=== PATIENT | female | born 1985 | race Caucasian/White ===

== ENCOUNTER 2016-06-27 16:23 | Emergency (ER) | payer MEDICAID ==
[~2016-06-27] VITALS: Ht 167.6 cm; Wt 132.0 kg
[~2016-06-27 16:23] MED LIST: ALBU0.086 INH; ALBU8I INH; AZAT50 PO; FURO1TAB93 PO; LORTA5 PO; MEST60TA PO; MONT10TA2 PO; POTA10IN2 PO; PROM25SU8 PO
[2016-06-27 16:24] VITALS: BP 179/94; PULSE 74; RESP 20; TEMP 98.7; O2SAT 99
[2016-06-27] MEDS ORDERED: VALA1TAB PO (16:55)
[2016-06-27] MEDS ORDERED: IBUP800T23 PO (16:55)
--- NOTE | 2016-06-27 16:56 | PD ---
HPI Chief Complaint: Skin Problem Time Seen by Provider: 16:52 Travel History International Travel<30 days: No Contact w/Intl Traveler<30days: No Traveled to known affect area: No History of Present Illness HPI 31-year-old female presents to the emergency Department with complaint of a rash to her right mid back 3-4 days. Her mom told her shingles. Denies fever or vomiting. Rash is painful. Has not taken any medications or tried any treatments to alleviate her symptoms. Allergies to Dilaudid. Has no other medical complaints. No other modifying factors or associated signs and symptoms. PFSH Past Medical History Asthma: Yes Blood Disorders: No Heart Rhythm Problems: No Cancer: No Cardiovascular Problems: No High Cholesterol: No Chest Pain: No Congestive Heart Failure: No COPD: No Diabetes: No Diminished Hearing: No Endocrine: No Genitourinary: No Immune Disorder: No Musculoskeletal: No Neurologic: Yes (MYESTHENIA GRAVIS) Psychiatric: No Reproductive: No Respiratory: Yes (ASTHMA) Sleep Apnea: No Thyroid Disease: No ?: Not LMP: 05/29/16 : 1 Para: 1 Miscarriage: 0 : 0 Past Surgical History AICD: No Appendectomy: Yes Pacemaker: No Other Surgery: Yes (APPENDECTOMY) Social History Alcohol Use: No Tobacco Use: No Substance Use: No Allergies-Medications (Allergen,Severity, Reaction): Coded Allergies: Dilaudid (Verified Adverse Reaction, Mild, Itching, 06/27/16) Reported Meds & Prescriptions Reported Meds & Active Scripts Active Ibuprofen 800 Mg Tab 800 Mg PO Q6HR PRN Valacyclovir (Valacyclovir HCl) 1 Gm Tab 1,000 Mg PO TID 7 Days [place] 5-325 mg (Hydrocodone-Acetaminophen 5-325 mg) 5 mg/325 mg Tab 1 Tab PO Q6H PRN Promethazine Hcl (Promethazine HCl) 25 Mg Tab 25 Mg PO Q6H PRN FOR NAUSEA/VOMITING Proventil Ud 0.083% (2.5 Mg/3 Ml) (Albuterol Sulfate) 2.5 Mg/3 Ml Inha 2.5 Mg INH Q6H Ventolin Hfa (Albuterol Sulfate) 8 Gm Aero 2 Puff INH Q4 * SHAKE WELL BEFORE USE * Ventolin Hfa (Albuterol Sulfate) 8 Gm Aero 2 Puff INH Q4 * SHAKE WELL BEFORE USE * Reported Potassium Chloride 10 Meq Cap 1 Cap PO BID Furosemide 40 Mg Tab 40 Mg PO BID Proventil Ud 0.083% (2.5 Mg/3 Ml) (Albuterol Sulfate) 2.5 Mg/3 Ml Inha 2.5 Mg INH Q4 PRN Singulair (Montelukast Sodium) 10 Mg Tab 10 Mg PO HS Azathioprine 50 Mg Tab 50 Mg PO BID 30 Days Mestinon (Pyridostigmine [place]) 60 Mg Tab 180 Mg PO 5 TIMES A DAY Review of Systems Except as stated in HPI: all other systems reviewed are Neg Physical Exam Narrative GENERAL: Well-nourished, well-developed female patient, in no acute distress; afebrile, nontoxic-appearing SKIN: Warm and dry. Right mid back with erythremic grouped vesicles present in a dermatomal distribution. No drainage or edema. HEAD: Atraumatic. Normocephalic. EYES: Pupils equal and round. No scleral icterus. No injection or drainage. ENT: Mucosa pink and moist. Airway patent. NECK: Trachea midline. CARDIOVASCULAR: Regular rate. RESPIRATORY: No accessory muscle use. GASTROINTESTINAL: Obese. MUSCULOSKELETAL: No obvious deformities. No clubbing. No cyanosis. No edema. NEUROLOGICAL: Awake and alert. Oriented 3. No obvious cranial nerve deficits. Motor grossly within normal limits. Normal speech. PSYCHIATRIC: Appropriate mood and affect; insight and judgment normal. Data Data Last Documented VS Vital Signs Date Time Temp Pulse Resp B/P Pulse Ox O2 Delivery O2 Flow Rate FiO2 06/27/16 16:24 98.7 74 20 179/94 99 Room Air MDM Medical Decision Making Medical Screen Exam Complete: Yes Emergency Medical Condition: Yes Medical Record Reviewed: Yes Differential Diagnosis shingles, contact dermatitis, scabies Narrative Course 31-year-old female with rash to her right mid back consistent with shingles outbreak. Patient is afebrile nontoxic appearing. Denies fever, vomiting. Valacyclovir and ibuprofen prescribed for home. Instructed patient to follow up with dermatology as needed. Patient verbalizes understanding and agreement with treatment plan. Patient is medically cleared and stable for discharge. Discussed reasons to return to the emergency department. Instructed patient to follow up with primary care provider. Patient agrees with treatment plan. The patients vital signs are stable and the patient is stable for outpatient follow- up and treatment. Patient discharged home, stable and in no acute distress. Diagnosis Primary Impression: Shingles Qualified Code: B02.9 - Herpes zoster without complication Referrals: [employer] Consult[facility] Primary Care Physician Patient Instructions: General Instructions, Shingles (ED) Departure Forms: Tests/Procedures, Work Release Enter return to work date: June 28, 2016 Additional Instructions: Take medications as prescribed Cold, wet compresses to the rash to help relieve itching and pain as needed Cool Bath to help relieve itching and pain as needed Follow-up with a primary care provider Return to the emergency department immediately with worsening of symptoms Med/Other Pt SpecificInfo: Prescription(s) given Scripts Ibuprofen 800 Mg [id number] Mg PO Q6HR PRN (PAIN) #30 TAB Ref 0 Prov:Elina Blanco 06/27/16 Valacyclovir 1 Gm Tab1,000 Mg PO TID 7 Days Ref 0 Prov:Elina Blanco 06/27/16 Disposition: 01 DISCHARGE HOME Condition: Stable Elina Blanco June 27, 2016 16:55
== END 2016-06-27 17:10 | disposition home or self-care (01) ==
LOC: NEPK 16:23
DX: B02.9 Zoster without complications (principal)
CPT/HCPCS: 99283

== ENCOUNTER 2016-08-18 20:28 | Emergency (ER) | payer MEDICAID ==
[~2016-08-18] VITALS: Ht 167.6 cm; Wt 130.0 kg
[~2016-08-18 20:28] MED LIST changes: +IBUP800T23 PO; +VALA1TAB PO
[2016-08-18 20:31] VITALS: BP 185/102; PULSE 69; RESP 15; TEMP 99; O2SAT 100
--- NOTE | 2016-08-18 20:37 | PD ---
Physical Exam Date Seen by Provider: Aug 18, 2016 Time Seen by Provider: 20:36 Narrative 31 yo female here for right breast infection. Has had it for a few days. Painful and draining pus. No other complains. Pain is 6/10. Vitals are stable in triage. Awaiting bed placement. Data Data Last Documented VS Vital Signs Date Time Temp Pulse Resp B/P Pulse Ox O2 Delivery O2 Flow Rate FiO2 08/18/16 20:31 99.0 69 15 185/102 100 Room Air [facility] Medical Record Reviewed: Yes Supervised Visit with JOSEMANUEL: Caden Kaba Aug 18, 2016 20:37
[2016-08-18] MEDS ORDERED: ADVA100A INH (20:43)
[2016-08-18] MEDS ORDERED: FURO40TA PO (20:43)
[2016-08-18] MEDS ORDERED: MONT10TA2 PO (20:43)
[2016-08-18] MEDS ORDERED: ALBUAER3 INH (20:43)
[2016-08-18] MEDS ORDERED: GABA100C4 PO (20:43)
[2016-08-18] MEDS ORDERED: VENTAER INH (20:43)
[2016-08-18] MEDS ORDERED: POTA8CAP PO (20:43)
[2016-08-18] MEDS ORDERED: MEST60TA PO (20:43)
[2016-08-18] MEDS ORDERED: IMUR50TA PO (20:43)
--- NOTE | 2016-08-18 20:49 | PD ---
HPI Chief Complaint: Skin Problem Time Seen by Provider: 20:47 Travel History International Travel<30 days: No Contact w/Intl Traveler<30days: No Traveled to known affect area: No History of Present Illness HPI 31-year-old white female presents emergency Department with complaints of a open draining abscess to her left breast last few days. She also states that she has not been feeling well. She has had some subjective fever and chills, nausea, vomiting, diarrhea. She does have increased urinary frequency. She denies any abdominal pain. No vaginal complaints. PFSH Past Medical History Narrative Medical Asthma, myasthenia Asthma: Yes Blood Disorders: No Heart Rhythm Problems: No Cancer: No Cardiovascular Problems: No High Cholesterol: No Chest Pain: No Congestive Heart Failure: No COPD: No Diabetes: No Diminished Hearing: No Endocrine: No Gastrointestinal Disorders: No Genitourinary: No Hypertension: No Immune Disorder: No Implanted Vascular Access Dvce: No Musculoskeletal: No Neurologic: Yes (MYESTHENIA GRAVIS) Psychiatric: No Reproductive: No Respiratory: Yes (ASTHMA) Sleep Apnea: No Thyroid Disease: No Tetanus Vaccination: Unknown ?: Unknown LMP: 07/04/16 : 1 Para: 1 Miscarriage: 0 : 0 Past Surgical History AICD: No Appendectomy: Yes Pacemaker: No Other Surgery: Yes (APPENDECTOMY) Social History Alcohol Use: No Tobacco Use: No Substance Use: No Allergies-Medications (Allergen,Severity, Reaction): Coded Allergies: Dilaudid (Verified Adverse Reaction, Mild, Itching, 08/18/16) Reported Meds & Prescriptions Reported Meds & Active Scripts Active Cephalexin 500 Mg Cap 500 Mg PO Q6H Bactrim DS (Sulfamethoxazole-Trimethoprim) 800-160 Mg Tab 1 Tab PO BID Reported Gabapentin Unknown Strength Cap Unknown Dose PO BID Advair Diskus Inh (Fluticasone-Salmeterol Inh) Unknown Strength Aer Unknown Dose INH BID Rinse mouth after use. Imuran (Azathioprine) 50 Mg Tab 50 Mg PO TID Hazardous agent: use appropriate precautions for handling and disposal. Mestinon (Pyridostigmine [place]) 60 Mg Tab 180 Mg PO Q4HR Singulair (Montelukast Sodium) 10 Mg Tab 10 Mg PO HS Potassium Chloride ER (Potassium Chloride) Unknown Strength Cap Unknown Dose PO BID Furosemide 40 Mg Tab 40 Mg PO BID Ventolin Hfa 18 GM Inh (Albuterol Sulfate) 90 Mcg/Act Aer 2 Puff INH Q4-6H PRN Proair Hfa 8.5 GM Inh (Albuterol Sulfate) 90 Mcg/Act Aer 2 Puff INH Q4-6H PRN 108 mcg/actuation Review of Systems Except as stated in HPI: all other systems reviewed are Neg Physical Exam Narrative GENERAL: Well-developed, well-nourished in no acute distress. Nontoxic appearing. Patient's examined with the [place] nurse present. Skin: Patient has a 1.5 x 1.5 cm area of erythema, induration to the left medial breast. There is an open area itches draining. There is no fluctuance or pointing. Minimally tender. HEAD: Normocephalic, atraumatic. EYES: Pupils equal round and reactive. Extraocular motions intact. No scleral icterus. No injection or drainage. ENT: TMs clear without erythema. The external auditory canals clear. Nose: clear . Posterior pharynx is pink and moist. No tonsillar edema or exudate. Uvula midline. Airway patent. NECK: Trachea midline.Supple, nontender, moves head freely. No central bony tenderness or spasm. CARDIOVASCULAR: Regular rate and rhythm without murmurs, gallops, or rubs. RESPIRATORY: Clear to auscultation. Breath sounds equal bilaterally. No wheezes , rales, or rhonchi. GASTROINTESTINAL: Abdomen soft, non-tender, nondistended. No hepato-splenomegaly , or palpable masses. No guarding. EXTREMITIES: No clubbing, cyanosis, or edema. No joint tenderness, effusion, or edema noted. BACK: Nontender without deformity or crepitance. No flank tenderness. Data Data Last Documented VS Vital Signs Date Time Temp Pulse Resp B/P Pulse Ox O2 Delivery O2 Flow Rate FiO2 08/18/16 20:31 99.0 69 15 185/102 100 Room Air Orders Cephalexin (Keflex) (08/18/16 21:00) Sulfamet-Trimeth Ds 800-160 Mg (Bactrim (08/18/16 21:00) MDM Medical Decision Making Medical Screen Exam Complete: Yes Emergency Medical Condition: Yes Medical Record Reviewed: Yes Differential Diagnosis MDM: High Differential diagnoses: Abscess, folliculitis, cellulitis, lymphangitis, abrasion, contact dermatitis Narrative Course This is left breast abscess open and draining Patient given Bactrim DS and Keflex 500 mg by mouth Diagnosis Primary Impression: left breast superficial abscess-draining Patient Instructions: General Instructions Additional Instructions: Rest. Elevation. Warm compresses. Keep clean and dry. Daily wound care with soap, water and Neosporin. Three Advil every 6 hours. Bactrim DS and Keflex. Follow-up with a primary care doctor in one week. Return to the ER for any problems. Med/Other Pt SpecificInfo: Prescription(s) given, Wound Care Scripts Cephalexin 500 Mg [id number] Mg PO Q6H #40 CAP Prov:Fred Garay MD 08/18/16 Sulfamethoxazole-Trimethoprim (Bactrim DS)800-160 Mg Tab1 Tab PO BID #20 TAB Prov:Fred Garay MD 08/18/16 Disposition: 01 DISCHARGE HOME Condition: Stable Rajeev Cramer Aug 18, 2016 20:49
[2016-08-18] MEDS ORDERED: BACT800T5 PO (20:50)
[2016-08-18] MEDS ORDERED: CEPH500C PO (20:50)
[2016-08-18] MEDS ORDERED: SULFAMETHOXAZOLE-TRIMETHOPRIM DS 800-160 MG TAB PO ONE (21:00)
[2016-08-18] MEDS ORDERED: CEPHALEXIN MONOHYDRATE 500 MG CAP PO ONE (21:00)
== END 2016-08-18 21:14 | disposition home or self-care (01) ==
LOC: NEPK 20:28
DX: N61.1 Abscess of the breast and nipple (principal); J45.909 Unspecified asthma, uncomplicated; G70.00 Myasthenia gravis without (acute) exacerbation; Z79.899 Other long term (current) drug therapy; Z79.51 Long term (current) use of inhaled steroids
CPT/HCPCS: 99284

== ENCOUNTER 2016-09-01 10:31 | Emergency (ER) | payer MEDICAID ==
[~2016-09-01 10:31] MED LIST changes: +ADVA100A INH; -ALBU0.086 INH; -ALBU8I INH; +ALBUAER3 INH; -AZAT50 PO; +BACT800T5 PO; +CEPH500C PO; -FURO1TAB93 PO; +FURO40TA PO; +GABA100C4 PO; -IBUP800T23 PO; +IMUR50TA PO; -LORTA5 PO; -POTA10IN2 PO; +POTA8CAP PO; -PROM25SU8 PO; -VALA1TAB PO; +VENTAER INH
[2016-09-01 10:32] VITALS: BP 160/94; PULSE 72; RESP 20; TEMP 98.6; O2SAT 98
[2016-09-01] MEDS ORDERED: CEPH500C PO (10:57)
[2016-09-01] MEDS ORDERED: BACT800T5 PO (10:57)
--- NOTE | 2016-09-01 11:03 | PD ---
HPI Chief Complaint: Skin Problem Time Seen by Provider: 10:58 Travel History International Travel<30 days: No Contact w/Intl Traveler<30days: No Traveled to known affect area: No History of Present Illness HPI 31-year-old female presents to emergency for with recurrent cellulitis /possible abscess to the left medial lower breast. Patient was seen previously 3 weeks ago when the area had an open draining abscess. He was treated with Keflex and Bactrim 10 days each. Patient states the area improved and seemed to be healing well, but yesterday she noted increased discomfort and erythema surrounding what appears to be a ecchymotic region in the middle. There is no drainage at this time. Patient has a history of myasthenia gravis but denies other significant symptoms. Patient is allergic to hydromorphone. PFSH Past Medical History Asthma: Yes Blood Disorders: No Heart Rhythm Problems: No Cancer: No Cardiovascular Problems: No High Cholesterol: No Chest Pain: No Congestive Heart Failure: No COPD: No Diabetes: No Diminished Hearing: No Endocrine: No Gastrointestinal Disorders: No Genitourinary: No Hypertension: No Immune Disorder: No Implanted Vascular Access Dvce: No Musculoskeletal: No Neurologic: Yes (MYESTHENIA GRAVIS) Psychiatric: No Reproductive: No Respiratory: Yes (ASTHMA) Sleep Apnea: No Thyroid Disease: No : 1 Para: 1 Miscarriage: 0 : 0 Past Surgical History AICD: No Appendectomy: Yes Pacemaker: No Other Surgery: Yes (APPENDECTOMY) Social History Alcohol Use: No Tobacco Use: No Substance Use: No Allergies-Medications (Allergen,Severity, Reaction): Coded Allergies: Dilaudid (Verified Adverse Reaction, Mild, Itching, 09/01/16) Reported Meds & Prescriptions Reported Meds & Active Scripts Active Reported Gabapentin Unknown Strength Cap Unknown Dose PO BID Advair Diskus Inh (Fluticasone-Salmeterol Inh) Unknown Strength Aer Unknown Dose INH BID Rinse mouth after use. Imuran (Azathioprine) 50 Mg Tab 50 Mg PO TID Hazardous agent: use appropriate precautions for handling and disposal. Mestinon (Pyridostigmine [place]) 60 Mg Tab 180 Mg PO Q4HR Singulair (Montelukast Sodium) 10 Mg Tab 10 Mg PO HS Potassium Chloride ER (Potassium Chloride) Unknown Strength Cap Unknown Dose PO BID Furosemide 40 Mg Tab 40 Mg PO BID Ventolin Hfa 18 GM Inh (Albuterol Sulfate) 90 Mcg/Act Aer 2 Puff INH Q4-6H PRN Proair Hfa 8.5 GM Inh (Albuterol Sulfate) 90 Mcg/Act Aer 2 Puff INH Q4-6H PRN 108 mcg/actuation Review of Systems Except as stated in HPI: all other systems reviewed are Neg General / Constitutional: No: Fever Eyes: No: Visual changes HENT: No: Headaches Cardiovascular: No: Chest Pain or Discomfort Respiratory: No: Shortness of Breath Gastrointestinal: No: Abdominal Pain Genitourinary: No: Dysuria Musculoskeletal: No: Pain Skin: Positive Lesions, No Rash Neurologic: No: Weakness Psychiatric: No: Depression Endocrine: No: Polydipsia Hematologic/Lymphatic: No: Easy Bruising Physical Exam Narrative GENERAL: Patient is in no acute distress. SKIN: Warm and dry. Normal color. Normal turgor. Patient has a dime-sized ecchymotic lesions to the left medial inner breast with quarter-sized area of erythema surrounding it. This is mildly tender with palpation. There is no lymphangitis. There is no palpable deep abscess appreciated. Patient is examined with nursing staff clay preparation supervisor. HEAD: Atraumatic. Normocephalic. EYES: Pupils equal and round. No scleral icterus. No injection or drainage. ENT: No nasal bleeding or discharge. Mucous membranes pink and moist. Pharynx is clear. Airway is patent. NECK: Trachea midline. No JVD. CARDIOVASCULAR: Regular rate and rhythm. RESPIRATORY: No accessory muscle use. Clear to auscultation. Breath sounds equal bilaterally. GASTROINTESTINAL: Abdomen soft, non-tender, nondistended. Hepatic and splenic margins not palpable. MUSCULOSKELETAL: Extremities without clubbing, cyanosis, or edema. No obvious deformities. NEUROLOGICAL: Awake and alert. No obvious cranial nerve deficits. Motor grossly within normal limits. Five out of 5 muscle strength in the arms and legs. Normal speech. PSYCHIATRIC: Appropriate mood and affect; insight and judgment normal. Data Data Last Documented VS Vital Signs Date Time Temp Pulse Resp B/P Pulse Ox O2 Delivery O2 Flow Rate FiO2 09/01/16 10:32 98.6 72 20 160/94 98 Room Air MDM Medical Decision Making Medical Screen Exam Complete: Yes Emergency Medical Condition: Yes Differential Diagnosis Cellulitis. Possible MRSA. Early abscess. Narrative Course Patient is medically stable at time of exam. Patient is given Bactrim DS twice a day 2 weeks. Patient is given Keflex 500 mg 32 weeks. Patient follow-up with local primary care physician to ensure improvement as discussed. Patient to return to emergency Department with worsening symptoms as discussed. Diagnosis Primary Impression: Cellulitis of left breast Referrals: [facility] Primary Care Physician Patient Instructions: General Instructions Additional Instructions: Patient is given Bactrim DS twice a day 2 weeks. Patient is given Keflex 500 mg 32 weeks. Patient follow-up with local primary care physician to ensure improvement as discussed. Patient to return to emergency Department with worsening symptoms as discussed. Med/Other Pt SpecificInfo: Prescription(s) given Scripts Cephalexin 500 Mg [id number] Mg PO Q8H 14 Days Prov:Lynn Spivey MD 09/01/16 Sulfamethoxazole-Trimethoprim (Bactrim DS)800-160 Mg Tab1 Tab PO BID #28 TAB Prov:Lynn Spivey MD 09/01/16 Disposition: 01 DISCHARGE HOME Condition: Stable Adolfo Khan Sep 01, 2016 11:03
== END 2016-09-01 11:18 | disposition home or self-care (01) ==
LOC: NEPK 10:31
DX: N61.0 Mastitis without abscess (principal); G70.00 Myasthenia gravis without (acute) exacerbation; J45.909 Unspecified asthma, uncomplicated; Z79.899 Other long term (current) drug therapy; Z79.52 Long term (current) use of systemic steroids
CPT/HCPCS: 99284

== ENCOUNTER 2017-07-16 19:19 | Emergency (ER) | payer MEDICAID ==
[~2017-07-16] VITALS: Ht 167.6 cm; Wt 140.0 kg
[~2017-07-16 19:19] MED LIST changes: -BACT800T5 PO; -CEPH500C PO; -IMUR50TA PO; +IMUR50TA5 PO; +SULF1TAB23 PO
[2017-07-16 19:25] VITALS: BP 155/97; PULSE 73; RESP 18; TEMP 99; O2SAT 98
[2017-07-16] MEDS ORDERED: VALA500T PO (20:48)
--- NOTE | 2017-07-16 20:50 | PD ---
HPI Chief Complaint: Skin Problem Time Seen by Provider: 20:28 Travel History International Travel<30 days: No Contact w/Intl Traveler<30days: No Traveled to known affect area: No History of Present Illness HPI 32-year-old female presents the emergency department with chief complaint of lesions on face. She has a history of shingles and has been particularly stressed out over the last 3-4 days and thinks that she may have a new outbreak. She is afebrile and otherwise asymptomatic. She has minimal pain. She noticed a few hours prior to arrival [facility] Past Medical History Asthma: Yes Blood Disorders: No Heart Rhythm Problems: No Cancer: No Cardiovascular Problems: No High Cholesterol: No Chest Pain: No Congestive Heart Failure: No COPD: No Diabetes: No Diminished Hearing: No Endocrine: No Gastrointestinal Disorders: No Genitourinary: No Hypertension: No Immune Disorder: No Implanted Vascular Access Dvce: No Musculoskeletal: No Neurologic: Yes (MYESTHENIA GRAVIS) Psychiatric: No Reproductive: No Respiratory: Yes (ASTHMA) Sleep Apnea: No Thyroid Disease: No Tetanus Vaccination: Unknown Influenza Vaccination: No ?: Not LMP: 07/16/2017 : 1 Para: 1 Miscarriage: 0 : 0 Past Surgical History AICD: No Appendectomy: Yes Pacemaker: No Other Surgery: Yes (APPENDECTOMY) Social History Alcohol Use: No Tobacco Use: No Substance Use: No Allergies-Medications (Allergen,Severity, Reaction): Coded Allergies: hydromorphone (Unverified Adverse Reaction, Mild, Itching, 07/16/17) Reported Meds & Prescriptions Reported Meds & Active Scripts Active Sulfamethoxazole-Trimethoprim 800-160 Mg Tab 1 Tab PO BID 14 Days Reported Gabapentin Unknown Strength Cap Unknown Dose PO BID Advair Diskus Inh (Fluticasone-Salmeterol Inh) Unknown Strength Aer Unknown Dose INH BID Rinse mouth after use. Imuran (Azathioprine) 50 Mg Tab 50 Mg PO TID Hazardous agent: use appropriate precautions for handling and disposal. Mestinon (Pyridostigmine [place]) 60 Mg Tab 180 Mg PO Q4HR Singulair (Montelukast Sodium) 10 Mg Tab 10 Mg PO HS Potassium Chloride ER (Potassium Chloride) Unknown Strength Cap Unknown Dose PO BID Furosemide 40 Mg Tab 40 Mg PO BID Ventolin Hfa 18 GM Inh (Albuterol Sulfate) 90 Mcg/Act Aer 2 Puff INH Q4-6H PRN Proair Hfa 8.5 GM Inh (Albuterol Sulfate) 90 Mcg/Act Aer 2 Puff INH Q4-6H PRN 108 mcg/actuation Review of Systems Except as stated in HPI: all other systems reviewed are Neg Skin: Positive Rash Physical Exam Narrative GENERAL: 32-year-old female in no distress SKIN: Small area of papular rash consistent with shingles. HEAD: Atraumatic. Normocephalic. EYES: Pupils equal and round. No scleral icterus. No injection or drainage. ENT: No nasal bleeding or discharge. Mucous membranes pink and moist. NECK: Trachea midline. No JVD. CARDIOVASCULAR: Regular rate and rhythm. No murmur appreciated. RESPIRATORY: No accessory muscle use. Clear to auscultation. Breath sounds equal bilaterally. GASTROINTESTINAL: Abdomen soft, non-tender, nondistended. Hepatic and splenic margins not palpable. Data Data Last Documented VS Vital Signs Date Time Temp Pulse Resp B/P (MAP) Pulse Ox O2 Delivery O2 Flow Rate FiO2 07/16/17 19:25 99.0 73 18 155/97 (116) 98 MDM Medical Decision Making Medical Screen Exam Complete: Yes Emergency Medical Condition: Yes Differential Diagnosis Shingles Narrative Course Patient seen and evaluated in the emergency department she is given a prescription for valacyclovir discharged home. She will follow-up with her primary care physician or return to the emergency department with any worsening or spread Diagnosis Primary Impression: Shingles Patient Instructions: General Instructions, Shingles (ED) Med/Other Pt SpecificInfo: Prescription(s) given Scripts Valacyclovir (Valacyclovir) 500 Mg Tab 500 MG PO TID for Mgmt Viral Infection, #90 TAB 0 Refills Prov: Mari Cespedes DO 07/16/17 Disposition: 01 DISCHARGE HOME Condition: Good Mari Cespedes DO July 16, 2017 20:50
== END 2017-07-16 20:54 | disposition home or self-care (01) ==
LOC: NEPC 19:19
DX: B02.9 Zoster without complications (principal)
CPT/HCPCS: 99283